=== PATIENT | female | born 1990 | race Caucasian/White ===

== ENCOUNTER → 2017-07-22 | Outpatient (CLI) | payer BC ==
--- NOTE | 2017-07-22 14:08 | RAD ---
HISTORY: Bilateral rib pain. Study: Rib series 7 views Comparison: None. Findings: The trachea is midline. The cardiac silhouette is unremarkable. The lungs are clear without focal i nfiltrate or effusion. The bony thorax is unremarkable. No acute cortical disruption or angulation of the bony left or right hemithorax can be identified. N o underlying pneumothorax is seen. IMPRESSION: 1. No acute cardiopulmonary disease. 2. No evidence for acute rib fracture can be identified. Reported By:
== END ==
LOC: RAD 12:52
PROVIDERS: ATTEND Nurse Practitioner Family
DX: R07.81 Pleurodynia (principal)
CPT/HCPCS: 71111